=== PATIENT | male | born 2005 | race Caucasian/White ===

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

== ENCOUNTER 2024-10-27 21:41 | Inpatient (IN) | payer BC, SELFPAY ==
[2024-10-27 22:08] VITALS: BP 120/80; BP 137/76; PULSE 80; PULSE 90; RESP 16; TEMP 37; O2SAT 97; O2SAT 98; BMI 22.4
--- NOTE | 2024-10-27 22:31 | ED.PSYCH ---
HPI - Psych General Chief Complaint: Psychiatric Symptoms Stated Complaint: PSYCH Time Seen by Provider: 10/27/24 21:53 Source: patient and EMS Mode of arrival: EMS Limitations: no limitations History of Present Illness ED Provider: [facility] HPI Narrative: 19 yo male with PMH of bipolar reports no meds x 1 month c/o SI and wanting to hurt himself. He did use a knife to cause abrasions to his R forearm no other injury or ingestion. He reports sig life stressors as the cause. He has SI but no plan. He is calm and talkative. MD complaint: suicidal ideation and feels depressed Onset (ago): week(s) Duration: getting worse History of same: Yes Relieving factors: none Exacerbating factors: other Context: not taking psychiatric medications and significant life stressor Associated psychiatric symptoms: depression and suicidal ideation Associated symptoms: denies other symptoms Treatments prior to arrival: none If self harm: admits thoughts of self harm and self-inflicted trauma Related Data Home Medications ?Medication ?Instructions ?Recorded ?Confirmed No Known Home Meds 10/27/24 10/27/24 Allergies Allergy/AdvReac Type Severity Reaction Status Date / Time No Known Allergies Allergy Verified 10/27/24 22:17 Review of Systems Review of Systems: Constitutional : No Fever, No Chills ENT/Mouth : No Ear Pain, No Nasal Congestion, No sore throat Eyes: No Eye Pain, No Swelling, No Redness Cardiovascular : No Chest Pain, No SOB Respiratory : No Cough, No Sputum, No Dyspnea Gastrointestinal : No Nausea, No Vomiting, No Diarrhea, No Hematochezia, No Melena Genitourinary : No Dysuria, No Urinary Frequency, No Hematuria Musculoskeletal : No Myalgias Skin : No Skin Lesions, No rash Neuro : No Weakness, No Numbness, No Paresthesias, No Dizziness, No Headache Psych : positive Anxiety, positive Depression, positive SI no HI Heme/Lymph: No Lymphadenopathy Endocrine : No Polyuria, No Polydipsia All other systems reviewed and are negative [facility] Past Medical History Attestation statement: The following information was validated with the patient. Source: old records reviewed Medical History Bipolar disorder Social History Social History Alcohol intake: never Patient Tobacco Use Status: Current someday Tobacco user Substance Use Type: Marijuana Advance Directives: No Advance Directives Information Provided: No Do you have a plan to hurt others: No Plan Physical Exam Vital Signs: Vital Signs: Last Vital Signs Temp 98.6 F 10/27/24 22:08 Pulse 80 10/27/24 22:08 Resp 16 10/27/24 22:08 BP 120/80 10/27/24 22:08 Pulse Ox 98 10/27/24 22:08 O2 Del Method Room Air 10/27/24 22:08 BMI result Body Mass Index 22.4 Appearance: Alert. Oriented X3. No acute distress. Eyes: Pupils equal, round and reactive to light. ENT: Pharynx normal. Neck: Normal inspection. Neck supple. CVS: Normal heart rate and rhythm. Pulses normal. Respiratory: No respiratory distress. Breath sounds normal. Abdomen: Soft and nontender. Skin: Skin warm and dry. Normal skin color. Normal skin turgor. Extremities: No lower extremity edema. No calf ttp Neuro: Oriented X 3. No motor deficit. No sensory deficit. Cn2-12 intact Course Course Course Narrative: inpatient bed search per CARE team Medications Administered Discontinued Medications Generic Name Dose Route Start Last Admin Trade Name Freq PRN Reason Stop Dose Admin Diphenhydramine HCl 50 mg 10/28/24 00:51 10/28/24 01:11 Diphenhydramine Hcl 25 Mg Capsule PO 10/28/24 00:52 50 mg ONCE ONE Administration Medical Decision Making Medical Decision Making [facility] Narrative: 19 yo male with PMH of bipolar here with SI and depression here with c/o not taking his medications and have sig life stressors at this time labs, CARE team consult Differential Diagnosis Differential Diagnoses: The differential diagnosis associated with the presentation includes depression, SI Admission/Observation Consideration of admission/observation: Escalation of care including admission/observation considered physician observation started at 1035pm pending CARE team Consult Healthcare Provider Management of the patient was discussed with: Behavioral Health Provider Lab Data [facility] Lab Attestation statement: I reviewed the patient's lab results. 10/27/24 22:24 10/27/24 22:24 Labs: Lab Results 10/27/24 Range/Units 22:24 WBC 9.6 (4.8-10.8) X10*3/uL RBC 5.02 (4.60-5.80) X10*6/uL Hgb 14.9 (14.0-18.0) g/dl Hct 44.4 (42.0-52.0) % MCV 88.4 (80.0-98.0) fL MCH 29.7 (27.0-33.0) pg MCHC 33.6 (31.0-36.0) g/dl RDW 13.5 (11.0-16.0) % Plt Count 348 D (160-400) X10*3/uL MPV 8.2 L (9.4-12.4) fL Immature Gran % (Auto) 0.7 H (0.0-0.4) % Neut % (Auto) 67.3 (45-73) % Lymph % (Auto) 22.7 (20-40) % [place] % (Auto) 7.1 (2-11) % Eos % (Auto) 1.7 (0-4) % Baso % (Auto) 0.5 (0-2) % Lymph # (Auto) 2.2 (1.2-4.9) X10*3/uL [place] # (Auto) 0.7 (0.1-1.2) X10*3/uL Eos # (Auto) 0.2 (0.0-0.4) X10*3/uL Baso # (Auto) 0.1 (0.0-0.2) X10*3/uL Abs Immat Gran (auto) 0.07 H (0.00-0.03) X10*3/uL Absolute Neuts (auto) 6.5 (2.0-8.3) x10*3/uL Absolute Nucleated RBC 0.000 (0.0-0.012) X10*3/uL Nucleated RBC % (auto) 0.0 (0.0-0.2) /100WBC Sodium 140 (135-145) mmol/L Potassium 4.0 (3.3-5.1) mmol/L Chloride 106 (96-108) mmol/L Carbon Dioxide 28 (22-29) mmol/L Anion Gap 10 L (12-20) BUN 16 (9-16) mg/dL Creatinine 1.06 (0.5-1.4) mg/dL Estim Creat Clear Calc 121.2 Estimated GFR > 60 Random Glucose 87 (60-115) mg/dL Calcium 9.4 (8.4-10.2) mg/dL Magnesium 2.1 (1.6-2.6) mg/dL Total Bilirubin 0.3 (0.0-1.0) mg/dL Direct Bilirubin 0.1 (0.0-0.5) mg/dL AST 21 (5-37) U/L ALT 10 (0-40) U/L Alkaline Phosphatase 73 (39-117) U/L Total Protein 7.3 (6.5-8.0) g/dL Albumin 4.4 (3.5-5.0) g/dL Urine Opiates Screen Not Detected (Not Detect) Ur Buprenorphine Scrn Not Detected (Not Detect) ng/mL Ur Oxycodone Screen Not Detected (Not Detect) ng/mL Urine Methadone Screen Not Detected (Not Detect) ng/mL Urine Fentanyl Screen Not Detected (Not Detect) Ur Barbiturates Screen Not Detected (Not Detect) Ur Phencyclidine Scrn Not Detected (Not Detect) Ur Amphetamines Screen Not Detected (Not Detect) U Benzodiazepines Scrn Not Detected (Not Detect) Urine Cocaine Screen Not Detected (Not Detect) U Marijuana (THC) Screen POSITIVE H (Not Detect) Ethyl Alcohol < 10 mg/dL Independent Historian Clinical information obtained from an independent historian. History obtained from or confirmed by: EMS Social Determinants Patient?s care significantly limited by Social Determinants of Health including: Problems related to primary support group Discharge Plan Discharge Clinical Impression: Suicidal ideation Patient Disposition: Still a Patient Prescriptions: No Action No Known Home Meds Interventions: [place]-Suicide Risk Severity Scale Last Done: 10/27/24 22:25 Print Language: Mozambican
[2024-10-27 22:32] LABS: MANUAL DIFF FLAG NO
[2024-10-27 22:35] LABS: Basophils Absolute Auto 0.1 X10*3/uL (0.0-0.2); Basophils Percent Auto 0.5 % (0-2); Eosinophils Absolute Auto 0.2 X10*3/uL (0.0-0.4); Eosinophils Percent Auto 1.7 % (0-4); Hematocrit 44.4 % (42.0-52.0); Hemoglobin 14.9 g/dl (14.0-18.0); Imm Gran Abs Auto 0.07 X10*3/uL (0.00-0.03); Imm Gran Pct Auto 0.7 % (0.0-0.4); Lymphocytes Absolute Auto 2.2 X10*3/uL (1.2-4.9); Lymphocytes Percent Auto 22.7 % (20-40); Mean Corpuscular HGB Conc 33.6 g/dl (31.0-36.0); Mean Corpuscular Hemoglobin 29.7 pg (27.0-33.0); Mean Corpuscular Volume 88.4 fL (80.0-98.0); Mean Platelet Volume 8.2 fL (9.4-12.4); Monocytes Absolute Auto 0.7 X10*3/uL (0.1-1.2); Monocytes Percent Auto 7.1 % (2-11); Neutrophils Absolute Auto 6.5 x10*3/uL (2.0-8.3); Neutrophils Percent Auto 67.3 % (45-73); Platelet Count 348 X10*3/uL (160-400); Red Blood Count 5.02 X10*6/uL (4.60-5.80); Red Cell Distribution Width 13.5 % (11.0-16.0); White Blood Count 9.6 X10*3/uL (4.8-10.8)
--- OUTSIDE RECORDS SUMMARY | 2024-10-27 22:50 | XMS_ITS ---
Author Name [facility] [[email or web address]P Organization Unknown History of Medication Use Medication Directions Dispensed Refills Start Date End Date Stat cyproheptadine 4 mg tablet TAKE ONE TABLET BY MOUTH TWICE A DAY TO STIMULATE APPETITE TAKE ONE TABLET BY MOUTH TWICE A DAY TO STIMULATE APPETITE 05/04/2022 completed fluoxetine 10 mg capsule Take one capsule by mouth daily for 7 days, increase to 2 capsuls daily until follow up Take one capsule by mouth daily for 7 days, increase to 2 capsuls daily until follow up 07/30/2022 completed dextroamphetamine-amp hetamine (ADDERALL XR) 20 MG extended release capsule Take 20 mg by mouth every morning 08/06/2023 active None recorded. (No additional sig information) 05/04/2022 completed Adderall XR 25 mg capsule,extended release TAKE ONE CAPSULE BY MOUTH ONCE DAILY IN THE MORNING TAKE ONE CAPSULE BY MOUTH ONCE DAILY IN THE MORNING 05/04/2022 completed hydroxyzine HCl 25 mg tablet Take 1-2 tablets as needed for severe anxiety, may repeat in 4 hours but not more than 2 doses per 24h period. Take 1-2 tablets as needed for severe anxiety, may repeat in 4 hours but not more than 2 doses per 24h period. 07/30/2022 completed Problems Problem Status Onset Date Problem Type Date of Resoluti on Source ADHD (attention deficit hyperactivity disorder) active 2017-12-18 ProblemAct [facility] Varicocele active 2016-11-08 ProblemAct [facility] Anxiety active 2022-07-25 ProblemAct [facility] Varicocele active 2017-12-18 ProblemAct [facility] Environmental allergies active 2017-12-18 ProblemAct [facility] Depressive disorder active 2022-07-25 ProblemAct [facility] Child attention deficit disorder active ProblemAct [facility] Wears glasses active 2016-11-08 ProblemAct [facility] Constipation active ProblemAct [facility]
--- NOTE | 2024-10-27 22:51 | PC.NURSE ---
changeover conducted by t/w very superficial lacerations #6 on r ventral surface forearm, patient had no evidence of cintraband present.
[2024-10-27 23:06] LABS: Alanine Aminotransferase 10 U/L (0-40); Albumin Level 4.4 g/dL (3.5-5.0); Alkaline Phosphatase 73 U/L (39-117); Anion Gap 10 (12-20); Aspartate Amino Transferase 21 U/L (5-37); Bilirubin Direct 0.1 mg/dL (0.0-0.5); Bilirubin Total 0.3 mg/dL (0.0-1.0); Blood Urea Nitrogen 16 mg/dL (9-16); Calcium 9.4 mg/dL (8.4-10.2); Carbon Dioxide 28 mmol/L (22-29); Chloride 106 mmol/L (96-108); Creatinine Clr Calc Pharmacy 121.2; Estimated Glomerular Filt Rate > 60; Ethanol < 10 mg/dL; Glucose Random 87 mg/dL (60-115); Magnesium 2.1 mg/dL (1.6-2.6); Sodium 140 mmol/L (135-145); Total Protein 7.3 g/dL (6.5-8.0)
[2024-10-27 23:11] LABS: Amphetamine Screen Urine Not Detected (Not Detect); Barbiturates, Urine Not Detected (Not Detect); Benzodiazepines Screen Urine Not Detected (Not Detect); Buprenorphine Scr Not Detected (Not Detect); Cannabinoid Screen Urine POSITIVE (Not Detect); Cocaine Screen Urine Not Detected (Not Detect); Fentanyl, urine Not Detected (Not Detect); Methadone Screen, Urine Not Detected (Not Detect); Opiate Screen Urine Not Detected (Not Detect); Oxycodone Screen Urine Not Detected (Not Detect); Phencyclidine Screen Urine Not Detected (Not Detect)
[2024-10-28] MEDS: diphenhydrAMINE HCL 25 MG CAPSULE 50 MG PO (01:11)
--- NOTE | 2024-10-28 03:03 | MHC.EDTECH ---
pt stated to t/w that he is unable to take out earring due to the possibility of it closing pt allowed to keep the dangling earring in and septum ring as well. rn aware.
--- NOTE | 2024-10-28 07:21 | PC.NURSE ---
Care of Pt assumed at change of shift. Pt is observed resting comfortably in bed. NAD noted at this time. Breakfast tray provided to Pt--placed at bedside.
[2024-10-28] MEDS: Nicotine Polacrilex 2 MG GUM BUCCAL ×2 (10:24→14:06)
[2024-10-28 11:22] VITALS: BP 126/78; PULSE 81; RESP 18; TEMP 36.2; O2SAT 99
[2024-10-28 11:29] LABS: Appearance Urine Cloudy; Color Urine Yellow; Glucose Urine UA Negative (Negative); Leukocyte Esterase Urine Negative (Negative); Nitrite Urine Negative (Negative); PH 5.5 (5.0-9.0); Specific Gravity - Urine 1.025 (1.005-1.025); Urine Blood Negative (Negative); Urine Ketones Negative (Negative); Urine Protein Trace mg/dL (Neg-Trace)
[2024-10-28 11:32] LABS: Bacteria Urine None Seen (None Seen); Hyaline Casts Urine 0-2 /LPF (0-2); RBC Urine 0-2 /HPF (0-2); Squamous Epithelial Cell Urine 0-2 /HPF (0-2); WBC Urine 0-5 /HPF (0-5)
--- NOTE | 2024-10-28 12:36 | MHC.CARE ---
Daniella with [facility] co-response [phone] calls to give her contact info for any social work program coordinator who has patient on their caseload. She shares that she is happy to help plan discharge/ follow up when he does discharge.
--- NOTE | 2024-10-28 15:40 | PHA.MEDREC ---
Addendum entered by Desiree Velasco RPh 10/28/24 16:16: REVIEWED BY [facility] Original Note: Pharmacy Consult ? Medication Reconciliation Pharmacy reviewed med rec done by nursing. No Known Home Meds were confirmed. Looking in claims, patient has not filled anything since 08/26 which was Olanzapine 15mg and patient got Qelbree 200mg tabs 06/25 for 90 and has not filled anything since then. I spoke with patients nurse and they stated the patient has not taken any medications in 1 month and stated the patient stopped them himself due to not liking how they were making him feel. The nurse stated the patient did say they still have some extra supply of the medications at home but has not taken them.
--- NOTE | 2024-10-28 15:43 | PC.NURSE ---
Spoke with JACQUELINE Cavanaugh for RN to RN report. Report completed and all questions answered to satisfaction. Awaiting transportation.
[2024-10-28] MEDS: Nicotine Polacrilex 2 MG GUM 4 MG BUCCAL (17:01)
[2024-10-28 17:26] VITALS: BP 134/80; PULSE 87; RESP 18; TEMP 36; O2SAT 99
[2024-10-28 17:27] VITALS: BMI 18.5
[2024-10-28] MEDS: Acetaminophen 325 MG TABLET 650 MG PO (17:50)
[2024-10-28] MEDS: hydrOXYzine HCL 25 MG TABLET PO (17:51)
[2024-10-28] MEDS: OLANZapine 5 MG TABLET PO (18:15)
--- NOTE | 2024-10-28 18:23 | PC.ADMIT ---
David arrived to the unit at 1600 from [facility] pod via wheelchair. Skin check done upon arrival superficial scratches to right forearm, rest of skin appears to be intact. He met with Jenna GALAN, signed CV. Upon approach he was calm and pleasant, when asked how he felt stated Ok, he reported endorsing anxiety and depression, denied auditory.visual hallucinations. When asked if he had any thoughts of wanting to hurt self stated No, verbalized to look for staff if thoughts occur. David reported he stopped taking his medications a month and half ago. He reported This medications suppressed my feelings, I didn't feel like myself. He reports feeling Numb. He reports he has talked to his psychiatrist I told him I'm on too many meds he doesn't listen. He reports The mental health system sucks. He acknowledge needing medications stated I just feel I'm not on the right ones. Per assessment David presented via ambulance secondary to suicidal ideation, he has six self inflicted superficial cuts on right forearm which he had made with a knife. Patient reported he had called a couple of friends and reported he was overwhelmed with stress and he was thinking of about ending his life. On arrival David reported he had stopped taking his depression, anxiety and ADHD medications because he felt Overmedicated. He also reported he has a pending assault and battery case coming up in November 2024, he that he could face long term time or probation. He is currently on 15 minute checks.
[2024-10-28] MEDS: LORazepam 1 MG TABLET 2 MG PO (19:24)
[2024-10-28] MEDS: OLANZapine ODT 10 MG TAB.RAPDIS TRANSLINGU (19:24)
[2024-10-28 20:00] VITALS: BP 117/62; PULSE 75; RESP 16; TEMP 36.4; O2SAT 98
[2024-10-28 20:32] VITALS: BP 117/62; PULSE 75; RESP 18; TEMP 36.4; O2SAT 98
[2024-10-29 08:00] VITALS: BP 122/83; PULSE 107; RESP 18; TEMP 36.3; O2SAT 97
--- NOTE | 2024-10-29 09:06 | P.HPPS_ITS ---
[facility] Date of Service: 10/29/24 Chief Complaint: Crisis Sources of Information: patient interviewed, chart reviewed and crisis/core team assessment reviewed HPI Subjective Notes: [place] Warning and Conditional Voluntary Narrative: Patient is a 19-year-old male with history of MDD, PTSD, and ADHD, who presented to ER via ambulance due to suicidal ideation secondary to increased life stressors. Per crisis report, patient called his friends and told them that he was feeling overwhelmed with stress and was thinking about ending his life. Patient has 6 self-inflicted superficial cuts on his right inner forearm which he made with a knife. Patient reports he stopped taking his psychiatric medications due to feeling overmedicated ;reports not taking his medications for the past 2 months. Patient reports daily cannabis use. Patient reports an upcoming court date in which she was charged with assault and battery is causing him increased stress. Patient reports that he attempted to end his life 3 years ago by intentional overdose of hydroxyzine. denies HI/VH/AH. He reports poor sleep. Patient has outpatient psychiatric providers. Patient has prior diagnosis of depression, anxiety and ADHD. Patient's father reports that he was hospitalized 6 months ago after telling a neighbor that he was going to kill himself. Utox positive for cannabis. During psychiatric assessment, patient presents alert and oriented x3. Patient reports feeling depressed ; patient stated, I'm feeling a lot of stress from my court date. Also from not having a car, job or money. I always have bad thoughts in my head and no motivation. I stopped taking my meds because I felt overmedicated. I either sleep too much or too little. I am open to taking meds but I do not want to be on a bunch of pills . Denies SI/HI/VH/AH. Patient reports history of superficially cutting. Patient reports he would like a referral to a new psychiatrist; he does not want a therapist because he believes that it is not beneficial. Patient stated, I smoke weed get tattoos and piercings because they help me from cutting myself. I do not want to . Past Psychiatric History: History overdose on hydroxyzine at age 16. History of superficially cutting: Psychiatrist: Dr. Chase. medication trials: prozac, zyprexa, wellbutrin. Medical Evaluation Reviewed: Yes [facility] Medical History (Reviewed 10/27/24 @ 22:33 by RIANA Espana Bipolar disorder Family History: Denies Social History: Lives with his parents. Single. No kids. High school diploma. Goes to [employer]; studying to be a [email or web address]. Substance History: Smokes marijuana daily. Reports using mushrooms once a month. Trauma History: Yes Diagnostics Vital Signs (24Hr): Vital Signs - 24 hr 10/28/24 11:22 10/28/24 17:26 10/28/24 20:00 Temperature 97.1 F 96.8 F 97.6 F Pulse Rate 81 87 75 Respiratory Rate 18 18 16 Blood Pressure 126/78 134/80 117/62 Pulse Oximetry 99 99 98 Oxygen Delivery Method Room Air Room Air Room Air 10/28/24 20:32 Temperature 97.6 F Pulse Rate 75 Respiratory Rate 18 Blood Pressure 117/62 Pulse Oximetry 98 Oxygen Delivery Method Room Air BMI result Body Mass Index 18.5 Labs 10/27/24 22:24 10/27/24 22:24 Labs: Laboratory Results - last 48 hr 10/27/24 10/28/24 10/28/24 22:24 11:17 17:46 WBC 9.6 RBC 5.02 Hgb 14.9 Hct 44.4 MCV 88.4 MCH 29.7 MCHC 33.6 RDW 13.5 Plt Count 348 D MPV 8.2 L Immature Gran % (Auto) 0.7 H Neut % (Auto) 67.3 Lymph % (Auto) 22.7 Jack % (Auto) 7.1 Eos % (Auto) 1.7 Baso % (Auto) 0.5 Lymph # (Auto) 2.2 Jack # (Auto) 0.7 Eos # (Auto) 0.2 Baso # (Auto) 0.1 Abs Immat Gran (auto) 0.07 H Absolute Neuts (auto) 6.5 Absolute Nucleated RBC 0.000 Nucleated RBC % (auto) 0.0 Hold Purple Top Sodium 140 Cancelled Potassium 4.0 Cancelled Chloride 106 Cancelled Carbon Dioxide 28 Cancelled Anion Gap 10 L Cancelled BUN 16 Cancelled Creatinine 1.06 Cancelled Estim Creat Clear Calc 121.2 Cancelled Estimated GFR > 60 Cancelled Random Glucose 87 Cancelled Calcium 9.4 Cancelled Magnesium 2.1 Total Bilirubin 0.3 Cancelled Direct Bilirubin 0.1 AST 21 Cancelled ALT 10 Cancelled Alkaline Phosphatase 73 Cancelled Total Protein 7.3 Cancelled Albumin 4.4 Cancelled Urine Color Yellow Urine Appearance Cloudy Urine pH 5.5 Ur Specific [place] 1.025 Urine Protein Trace Urine Glucose (UA) Negative Urine Ketones Negative Urine Blood Negative Urine Nitrite Negative Ur Leukocyte Esterase Negative Urine RBC 0-2 Urine WBC 0-5 Ur Squamous Epith Cells 0-2 Urine Bacteria None Seen Hyaline Casts 0-2 Urine Opiates Screen Not Detected Ur Buprenorphine Scrn Not Detected Ur Oxycodone Screen Not Detected Urine Methadone Screen Not Detected Urine Fentanyl Screen Not Detected Ur Barbiturates Screen Not Detected Ur Phencyclidine Scrn Not Detected Ur Amphetamines Screen Not Detected U Benzodiazepines Scrn Not Detected Urine Cocaine Screen Not Detected U Marijuana (THC) Screen POSITIVE H Ethyl Alcohol < 10 10/28/24 22:24 WBC RBC Hgb Hct MCV MCH MCHC RDW Plt Count MPV Immature Gran % (Auto) Neut % (Auto) Lymph % (Auto) Jack % (Auto) Eos % (Auto) Baso % (Auto) Lymph # (Auto) Jack # (Auto) Eos # (Auto) Baso # (Auto) Abs Immat Gran (auto) Absolute Neuts (auto) Absolute Nucleated RBC Nucleated RBC % (auto) Hold Purple Top SEE NOTE Sodium Potassium Chloride Carbon Dioxide Anion Gap BUN Creatinine Estim Creat Clear Calc Estimated GFR Random Glucose Calcium Magnesium Total Bilirubin Direct Bilirubin AST ALT Alkaline Phosphatase Total Protein Albumin Urine Color Urine Appearance Urine pH Ur Specific [place] Urine Protein Urine Glucose (UA) Urine Ketones Urine Blood Urine Nitrite Ur Leukocyte Esterase Urine RBC Urine WBC Ur Squamous Epith Cells Urine Bacteria Hyaline Casts Urine Opiates Screen Ur Buprenorphine Scrn Ur Oxycodone Screen Urine Methadone Screen Urine Fentanyl Screen Ur Barbiturates Screen Ur Phencyclidine Scrn Ur Amphetamines Screen U Benzodiazepines Scrn Urine Cocaine Screen U Marijuana (THC) Screen Ethyl Alcohol Meds/Allergies Meds Home Medications ?Medication ?Instructions ?Recorded ?Confirmed ?Type No Known Home Meds 10/27/24 10/27/24 History Allergies Allergies Allergy/AdvReac Type Severity Reaction Status Date / Time No Known Allergies Allergy Verified 10/27/24 22:17 Mental Status Exam Mental Status Exam Narrative: Pt is alert and oriented; behavior is cooperative, calm; dressed in casual attire mood is described as depressed ; eye contact appropriate; Speech is normal rate, volume and not pressured; thought process is organized and goal directed; Thought content is on tx; otherwise pertinent to relevant topics and without any delusional content, paranoid ideations or grandiosity; denies SI/HI/AH/VH. Assessment & Plan Assessment & Plan (1) MDD (major depressive disorder), recurrent episode: Status: Acute Code(s): F33.9 - Major depressive disorder, recurrent, unspecified (2) PTSD (post-traumatic stress disorder): Status: Acute Code(s): F43.10 - Post-traumatic stress disorder, unspecified (3) ADHD: Status: Acute Code(s): F90.9 - Attention-deficit hyperactivity disorder, unspecified type Plan Patient is a 19-year-old male with history of MDD, PTSD, and ADHD, who presented to ER via ambulance due to suicidal ideation secondary to increased life stressors. Plan: CV 15 minute safety checks Obtain collateral Encourage groups Continue: Prozac 20 mg p.o. daily Start: Clonidine 0.1 mg p.o. b.i.d. Referral to outpatient prescriber Discharge planning Patient educated on: diagnosis and medication risk/benefits Reason for continued inpatient stay Substantial Risk for: med/psych decompensation Statement Statement: I have reviewed the history and physical and performed a pertinent examination on my patient. No changes have occurred unless specified. If the History and Physical was not performed prior to admission, the Hospitalist's service will be consulted for completing the admission physical. Time Spent With Patient Time: Total time managing care of this patient today _60___ minutes.
[2024-10-29] MEDS: Nicotine Polacrilex 2 MG GUM 4 MG BUCCAL ×6 (11:22→22:58)
[2024-10-29] MEDS: OLANZapine 5 MG TABLET PO (14:27)
[2024-10-29 16:22] VITALS: BP 126/76
[2024-10-29] MEDS: FLUoxetine HCl 20 MG CAPSULE PO (16:22)
[2024-10-29] MEDS: cloNIDine HCL 0.1 MG TABLET PO ×2 (16:22→20:52)
[2024-10-29 20:10] VITALS: BP 116/64; PULSE 102; RESP 16; TEMP 36.2; O2SAT 100
[2024-10-29] MEDS: hydrOXYzine HCL 25 MG TABLET PO (20:52)
[2024-10-29] MEDS: Flu Vacc TS2024-25(6mos up)/PF 0.5 ML SYRINGE IM (21:27)
[2024-10-29] MEDS: traZODone HCL 50 MG TABLET PO (22:58)
[2024-10-30 07:30] VITALS: BP 92/49; PULSE 58; RESP 14; TEMP 36.2; O2SAT 96
--- NOTE | 2024-10-30 07:46 | P.PNPSI_ITS ---
Subjective Subjective Date of Service: 10/30/24 Reason For Visit: Crisis Subjective Notes: Conditional Voluntary Interim History: He denies SI/HI. He reports mood is better. No VH/AH. He is taking medications. No behavioral concerns. Review of Systems Review of Systems Constitutional : No Fever, No Chills ENT/Mouth : No Ear Pain, No Nasal Congestion, No sore throat Eyes: No Eye Pain, No Swelling, No Redness Cardiovascular : No Chest Pain, No SOB Respiratory : No Cough, No Sputum, No Dyspnea Gastrointestinal : No Nausea, No Vomiting, No Diarrhea, No Hematochezia, No Melena Genitourinary : No Dysuria, No Urinary Frequency, No Hematuria Musculoskeletal : No Myalgias Skin : No Skin Lesions, No rash Neuro : No Weakness, No Numbness, No Paresthesias, No Dizziness, No Headache Psych : positive Anxiety, positive Depression, positive SI no HI Heme/Lymph: No Lymphadenopathy Endocrine : No Polyuria, No Polydipsia All other systems reviewed and are negative Constitutional: Reports as per HPI Eyes: Reports as per HPI Reports as per HPI Cardiovascular: Reports as per HPI Respiratory: Reports as per HPI Gastrointestinal: Reports as per HPI Genitourinary: Reports as per HPI Musculoskeletal: Reports as per HPI Skin/Breast: Reports as per HPI Reports as per HPI Psychiatric: Reports as per HPI Endocrine: Reports as per HPI Hematologic/Lymphatic: Reports as per HPI Allergic/Immunologic: Reports as per HPI Mental Status Exam Mental Status Exam Narrative: Pt is alert and oriented; behavior is cooperative, calm; dressed in casual attire mood is described as depressed ; eye contact appropriate; Speech is normal rate, volume and not pressured; thought process is organized and goal directed; Thought content is on tx; otherwise pertinent to relevant topics and without any delusional content, paranoid ideations or grandiosity; denies SI/HI/AH/VH. Diagnostics Vital Signs (24Hr): Vital Signs - 24 hr 10/29/24 08:00 10/29/24 16:22 10/29/24 20:10 Temperature 97.3 F 97.1 F Pulse Rate 107 H 102 H Respiratory Rate 18 16 Blood Pressure 122/83 126/76 116/64 Pulse Oximetry 97 100 Oxygen Delivery Method Room Air Room Air BMI result Body Mass Index 18.5 Labs 10/27/24 22:24 10/27/24 22:24 Labs: Laboratory Results - last 48 hr 10/28/24 10/28/24 10/28/24 11:17 17:46 22:24 Hold Purple Top SEE NOTE Sodium Cancelled Potassium Cancelled Chloride Cancelled Carbon Dioxide Cancelled Anion Gap Cancelled BUN Cancelled Creatinine Cancelled Estim Creat Clear Calc Cancelled Estimated GFR Cancelled Random Glucose Cancelled Calcium Cancelled Total Bilirubin Cancelled AST Cancelled ALT Cancelled Alkaline Phosphatase Cancelled Total Protein Cancelled Albumin Cancelled Urine Color Yellow Urine Appearance Cloudy Urine pH 5.5 Ur Specific [place] 1.025 Urine Protein Trace Urine Glucose (UA) Negative Urine Ketones Negative Urine Blood Negative Urine Nitrite Negative Ur Leukocyte Esterase Negative Urine RBC 0-2 Urine WBC 0-5 Ur Squamous Epith Cells 0-2 Urine Bacteria None Seen Hyaline Casts 0-2 Medications Medications Current Medications Acetaminophen (Acetaminophen 325 Mg Tablet) 650 mg PO Q6H PRN PRN Reason: Headache/Pain Mild Scale (1-3) Last Admin: 10/28/24 17:50 Dose: 650 mg Al Hydroxide/Mg Hydroxide (Magnesium Hydrox/Alum Hydrox 30 Ml Oral.Susp) 30 ml PO Q6H PRN PRN Reason: Heartburn/Nausea Clonidine HCl (Clonidine Hcl 0.1 Mg Tablet) 0.1 mg PO BID [facility]; Protocol Last Admin: 10/29/24 20:52 Dose: 0.1 mg Fluoxetine HCl (Fluoxetine Hcl 20 Mg Capsule) 20 mg PO DAILY [facility] Last Admin: 10/29/24 16:22 Dose: 20 mg Hydroxyzine HCl (Hydroxyzine Hcl 25 Mg Tablet) 25 mg PO Q6H PRN PRN Reason: Anxiety Last Admin: 10/29/24 20:52 Dose: 25 mg Magnesium Hydroxide (Milk Of Magnesia 30 Ml Oral.Susp) 30 ml PO DAILY PRN PRN Reason: Constipation Nicotine Polacrilex (Nicotine Polacrilex 2 Mg Gum) 4 mg BUCCAL Q2H PRN PRN Reason: Nicotine Cravings Last Admin: 10/29/24 22:58 Dose: 4 mg Olanzapine (Olanzapine 5 Mg Tablet) 5 mg PO Q4H PRN PRN Reason: agitation Last Admin: 10/29/24 14:27 Dose: 5 mg Trazodone HCl (Trazodone Hcl 50 Mg Tablet) 50 mg PO BEDTIME MRX1 PRN PRN Reason: Insomnia Last Admin: 10/29/24 22:58 Dose: 50 mg Allergies Allergies Allergy/AdvReac Type Severity Reaction Status Date / Time No Known Allergies Allergy Verified 10/27/24 22:17 Assessment & Plan Assessment & Plan (1) MDD (major depressive disorder), recurrent episode: Status: Acute Code(s): F33.9 - Major depressive disorder, recurrent, unspecified (2) PTSD (post-traumatic stress disorder): Status: Acute Code(s): F43.10 - Post-traumatic stress disorder, unspecified (3) ADHD: Status: Acute Code(s): F90.9 - Attention-deficit hyperactivity disorder, unspecified type Plan Patient is a 19-year-old male with history of MDD, PTSD, and ADHD, who presented to ER via ambulance due to suicidal ideation secondary to increased life stressors. Plan: 10/30 continue tx. mucinex for congestion, will add flonase Reason for continued inpatient stay Substantial Risk for: inability to function Time Spent With Patient Time: Total time managing care of this patient today ____ minutes.
[2024-10-30] MEDS: Nicotine Polacrilex 2 MG GUM 4 MG BUCCAL ×7 (07:57→22:16)
[2024-10-30 08:52] VITALS: BP 115/70
[2024-10-30] MEDS: FLUoxetine HCl 20 MG CAPSULE PO (08:52)
[2024-10-30] MEDS: cloNIDine HCL 0.1 MG TABLET PO ×2 (08:52→22:24)
[2024-10-30 19:33] VITALS: BP 115/63; PULSE 79; RESP 18; TEMP 36.4; O2SAT 98
[2024-10-30 22:24] VITALS: BP 118/63
[2024-10-30] MEDS: hydrOXYzine HCL 25 MG TABLET PO (22:24)
[2024-10-30] MEDS: traZODone HCL 50 MG TABLET PO (22:24)
[2024-10-31 08:24] VITALS: BP 110/63
[2024-10-31] MEDS: FLUoxetine HCl 20 MG CAPSULE PO (08:24)
[2024-10-31] MEDS: cloNIDine HCL 0.1 MG TABLET PO ×2 (08:24→22:33)
[2024-10-31 08:25] VITALS: BP 110/63; PULSE 94; RESP 16; TEMP 36.5; O2SAT 99
[2024-10-31] MEDS: Nicotine Polacrilex 2 MG GUM 4 MG BUCCAL ×6 (08:47→23:22)
--- NOTE | 2024-10-31 10:09 | HO.PSYCHPN ---
Subjective Subjective Date of Service: 10/31/24 Reason For Visit: Crisis Subjective Notes: Conditional Voluntary Interim History: Pt slept most of the night. He reports feeling like a zombie. He explains feels no emotion but he actually seems with wide range of emotions. He is also seen socializing and interacting appropriate with peers, laughing. No SI/HI. He also reports vivid dreams with trazodone, will dc and add remeron instead. No behavioral concerns. Review of Systems Review of Systems Constitutional : No Fever, No Chills ENT/Mouth : No Ear Pain, No Nasal Congestion, No sore throat Eyes: No Eye Pain, No Swelling, No Redness Cardiovascular : No Chest Pain, No SOB Respiratory : No Cough, No Sputum, No Dyspnea Gastrointestinal : No Nausea, No Vomiting, No Diarrhea, No Hematochezia, No Melena Genitourinary : No Dysuria, No Urinary Frequency, No Hematuria Musculoskeletal : No Myalgias Skin : No Skin Lesions, No rash Neuro : No Weakness, No Numbness, No Paresthesias, No Dizziness, No Headache Psych : positive Anxiety, positive Depression, positive SI no HI Heme/Lymph: No Lymphadenopathy Endocrine : No Polyuria, No Polydipsia All other systems reviewed and are negative Constitutional: Reports as per HPI Eyes: Reports as per HPI Reports as per HPI Cardiovascular: Reports as per HPI Respiratory: Reports as per HPI Gastrointestinal: Reports as per HPI Genitourinary: Reports as per HPI Musculoskeletal: Reports as per HPI Skin/Breast: Reports as per HPI Reports as per HPI Psychiatric: Reports as per HPI Endocrine: Reports as per HPI Hematologic/Lymphatic: Reports as per HPI Allergic/Immunologic: Reports as per HPI Mental Status Exam Mental Status Exam Narrative: Pt is alert and oriented; behavior is cooperative, calm; dressed in casual attire mood is described as depressed ; eye contact appropriate; Speech is normal rate, volume and not pressured; thought process is organized and goal directed; Thought content is on tx; otherwise pertinent to relevant topics and without any delusional content, paranoid ideations or grandiosity; denies SI/HI/AH/VH. Diagnostics Vital Signs (24Hr): Vital Signs - 24 hr 10/30/24 19:33 10/30/24 22:24 10/31/24 08:24 Temperature 97.5 F Pulse Rate 79 Respiratory Rate 18 Blood Pressure 115/63 118/63 110/63 Pulse Oximetry 98 Oxygen Delivery Method Room Air 10/31/24 08:25 Temperature 97.7 F Pulse Rate 94 Respiratory Rate 16 Blood Pressure 110/63 Pulse Oximetry 99 Oxygen Delivery Method Room Air BMI result Body Mass Index 18.5 Labs 10/27/24 22:24 10/27/24 22:24 Medications Medications Current Medications Acetaminophen (Acetaminophen 325 Mg Tablet) 650 mg PO Q6H PRN PRN Reason: Headache/Pain Mild Scale (1-3) Last Admin: 10/28/24 17:50 Dose: 650 mg Al Hydroxide/Mg Hydroxide (Magnesium Hydrox/Alum Hydrox 30 Ml Oral.Susp) 30 ml PO Q6H PRN PRN Reason: Heartburn/Nausea Clonidine HCl (Clonidine Hcl 0.1 Mg Tablet) 0.1 mg PO BID [facility]; Protocol Last Admin: 10/31/24 08:24 Dose: 0.1 mg Fluoxetine HCl (Fluoxetine Hcl 20 Mg Capsule) 20 mg PO DAILY [facility] Last Admin: 10/31/24 08:24 Dose: 20 mg Guaifenesin/Dextromethorphan (Guaifenesin Dm 600/30 1 Tab Tab.Er.12h) 1 tab PO BID PRN PRN Reason: Cough/congestion Hydroxyzine HCl (Hydroxyzine Hcl 25 Mg Tablet) 25 mg PO Q6H PRN PRN Reason: Anxiety Last Admin: 10/30/24 22:24 Dose: 25 mg Magnesium Hydroxide (Milk Of Magnesia 30 Ml Oral.Susp) 30 ml PO DAILY PRN PRN Reason: Constipation Nicotine Polacrilex (Nicotine Polacrilex 2 Mg Gum) 4 mg BUCCAL Q2H PRN PRN Reason: Nicotine Cravings Last Admin: 10/31/24 08:47 Dose: 4 mg Olanzapine (Olanzapine 5 Mg Tablet) 5 mg PO Q4H PRN PRN Reason: agitation Last Admin: 10/29/24 14:27 Dose: 5 mg Trazodone HCl (Trazodone Hcl 50 Mg Tablet) 50 mg PO BEDTIME MRX1 PRN PRN Reason: Insomnia Last Admin: 10/30/24 22:24 Dose: 50 mg Allergies Allergies Allergy/AdvReac Type Severity Reaction Status Date / Time No Known Allergies Allergy Verified 10/27/24 22:17 Assessment & Plan Assessment & Plan (1) MDD (major depressive disorder), recurrent episode: Status: Acute Code(s): F33.9 - Major depressive disorder, recurrent, unspecified (2) PTSD (post-traumatic stress disorder): Status: Acute Code(s): F43.10 - Post-traumatic stress disorder, unspecified (3) ADHD: Status: Acute Code(s): F90.9 - Attention-deficit hyperactivity disorder, unspecified type Plan Patient is a 19-year-old male with history of MDD, PTSD, and ADHD, who presented to ER via ambulance due to suicidal ideation secondary to increased life stressors. Plan: 10/30 continue tx. mucinex for congestion, will add flonase 10/31 d/c trazodone due to vivid dreams. will add remeron instead. Reason for continued inpatient stay Substantial Risk for: inability to function Time Spent With Patient Time: Total time managing care of this patient today ____ minutes.
[2024-10-31 20:00] VITALS: BP 107/64; PULSE 80; RESP 16; TEMP 36.7; O2SAT 98
[2024-10-31 22:18] VITALS: BP 105/64; PULSE 73
[2024-10-31] MEDS: hydrOXYzine HCL 25 MG TABLET PO (22:33)
[2024-10-31] MEDS: Mirtazapine 15 MG TABLET PO (22:34)
[2024-11-01 07:40] VITALS: BP 111/70; PULSE 65; RESP 16; TEMP 36.3; O2SAT 99
[2024-11-01] MEDS: Nicotine Polacrilex 2 MG GUM 4 MG BUCCAL ×4 (08:36→23:01)
[2024-11-01] MEDS: FLUoxetine HCl 20 MG CAPSULE PO (08:36)
[2024-11-01] MEDS: cloNIDine HCL 0.1 MG TABLET PO ×2 (08:36→22:50)
--- NOTE | 2024-11-01 11:02 | HO.PSYCHPN ---
Subjective Subjective Date of Service: 11/01/24 Reason For Visit: Crisis Subjective Notes: 3 Day Interim History: Active on unit, social with peers. attending groups. Patient reports feeling good and ready to go home tomorrow ; denies SI/HI/VH/AH. Discussed possibly attending PHP, however, pt states he is focused on obtaining a job when discharged. Patient reports he plans on following up with his outpatient providers. Spoke to patient's mother, Brittany, with patients consent; reviewed medications;states she dispenses patients medications. Medication Compliance: Yes Side effects from medications: No Attending Groups: Yes Review of Systems Constitutional: Reports as per HPI Eyes: Reports as per HPI Reports as per HPI Cardiovascular: Reports as per HPI Respiratory: Reports as per HPI Gastrointestinal: Reports as per HPI Genitourinary: Reports as per HPI Musculoskeletal: Reports as per HPI Skin/Breast: Reports as per HPI Reports as per HPI Psychiatric: Reports as per HPI Endocrine: Reports as per HPI Hematologic/Lymphatic: Reports as per HPI Allergic/Immunologic: Reports as per HPI Mental Status Exam Mental Status Exam Narrative: Pt is alert and oriented; behavior is cooperative and calm; dressed in casual attire; mood is described as good ; eye contact appropriate; Speech is normal rate, volume and not pressured; thought process is organized and goal directed; Thought content is on tx; denies SI/HI/VH/AH. Diagnostics Vital Signs (24Hr): Vital Signs - 24 hr 10/31/24 20:00 10/31/24 22:18 11/01/24 07:40 Temperature 98.1 F 97.3 F Pulse Rate 80 73 65 Respiratory Rate 16 16 Blood Pressure 107/64 105/64 111/70 Pulse Oximetry 98 99 Oxygen Delivery Method Room Air Room Air BMI result Body Mass Index 18.5 Labs 10/27/24 22:24 10/27/24 22:24 Medications Medications Current Medications Acetaminophen (Acetaminophen 325 Mg Tablet) 650 mg PO Q6H PRN PRN Reason: Headache/Pain Mild Scale (1-3) Last Admin: 10/28/24 17:50 Dose: 650 mg Al Hydroxide/Mg Hydroxide (Magnesium Hydrox/Alum Hydrox 30 Ml Oral.Susp) 30 ml PO Q6H PRN PRN Reason: Heartburn/Nausea Clonidine HCl (Clonidine Hcl 0.1 Mg Tablet) 0.1 mg PO BID [facility]; Protocol Last Admin: 11/01/24 08:36 Dose: 0.1 mg Fluoxetine HCl (Fluoxetine Hcl 20 Mg Capsule) 20 mg PO DAILY [facility] Last Admin: 11/01/24 08:36 Dose: 20 mg Guaifenesin/Dextromethorphan (Guaifenesin Dm 600/30 1 Tab Tab.Er.12h) 1 tab PO BID PRN PRN Reason: Cough/congestion Hydroxyzine HCl (Hydroxyzine Hcl 25 Mg Tablet) 25 mg PO Q6H PRN PRN Reason: Anxiety Last Admin: 10/31/24 22:33 Dose: 25 mg Magnesium Hydroxide (Milk Of Magnesia 30 Ml Oral.Susp) 30 ml PO DAILY PRN PRN Reason: Constipation Mirtazapine (Mirtazapine 15 Mg Tablet) 15 mg PO BEDTIME [facility] Last Admin: 10/31/24 22:34 Dose: 15 mg Nicotine Polacrilex (Nicotine Polacrilex 2 Mg Gum) 4 mg BUCCAL Q2H PRN PRN Reason: Nicotine Cravings Last Admin: 11/01/24 08:36 Dose: 4 mg Olanzapine (Olanzapine 5 Mg Tablet) 5 mg PO Q4H PRN PRN Reason: agitation Last Admin: 10/29/24 14:27 Dose: 5 mg Allergies Allergies Allergy/AdvReac Type Severity Reaction Status Date / Time No Known Allergies Allergy Verified 10/27/24 22:17 Assessment & Plan Assessment & Plan (1) MDD (major depressive disorder), recurrent episode: Status: Acute Code(s): F33.9 - Major depressive disorder, recurrent, unspecified (2) PTSD (post-traumatic stress disorder): Status: Acute Code(s): F43.10 - Post-traumatic stress disorder, unspecified (3) ADHD: Status: Acute Code(s): F90.9 - Attention-deficit hyperactivity disorder, unspecified type Plan Patient is a 19-year-old male with history of MDD, PTSD, and ADHD, who presented to ER via ambulance due to suicidal ideation secondary to increased life stressors. Plan: 10/30 continue tx. mucinex for congestion, will add flonase 10/31 d/c trazodone due to vivid dreams. will add remeron instead. 11/01: Active on unit, social with peers. attending groups. Patient reports feeling good and ready to go home tomorrow ; denies SI/HI/VH/AH. Discussed possibly attending PHP, however, pt states he is focused on obtaining a job when discharged. Patient reports he plans on following up with his outpatient providers. Spoke to patient's mother, Brittany, with patients consent; reviewed medications;states she dispenses patients medications. Patient educated on: diagnosis and medication risk/benefits Reason for continued inpatient stay Substantial Risk for: stable for discharge Time Spent With Patient Time: Total time managing care of this patient today _20___ minutes.
[2024-11-01] MEDS: Acetaminophen 325 MG TABLET 650 MG PO (11:35)
[2024-11-01] MEDS: OLANZapine 5 MG TABLET PO (19:17)
[2024-11-01 20:00] VITALS: BP 106/61; PULSE 79; RESP 16; TEMP 36.9; O2SAT 97
[2024-11-01 22:37] VITALS: BP 108/60; PULSE 74
[2024-11-01] MEDS: Mirtazapine 15 MG TABLET PO (22:50)
[2024-11-02 07:40] VITALS: BP 115/67; PULSE 56; RESP 18; TEMP 35.9; O2SAT 100
[2024-11-02] MEDS: cloNIDine HCL 0.1 MG TABLET PO (08:39)
[2024-11-02] MEDS: FLUoxetine HCl 20 MG CAPSULE PO (08:39)
--- NOTE | 2024-11-02 09:01 | P.DS_ITS ---
DS: Providers Provider Date of Service: 11/02/24 Date of admission: 10/28/24 13:45 Date of discharge: 11/02/24 Primary care physician: Unknown Physician Admitting clinician: Elidia West Attending physician on admission: Maycol Lantigua Attending physician on discharge: Maycol Lantigua Discharging clinician: Elidia West DS: Diagnosis Discharge Diagnosis (1) MDD (major depressive disorder), recurrent episode: Status: Acute (2) PTSD (post-traumatic stress disorder): Status: Acute (3) ADHD: Status: Acute DS: Medications Discharge Medications Home Medications: Previous Rx's ?Medication ?Instructions ?Recorded clonidine HCl 0.1 mg tablet 0.1 mg PO BID 30 days #60 tabs 11/01/24 fluoxetine 20 mg capsule 20 mg PO DAILY 30 days #30 caps 11/01/24 hydroxyzine HCl 25 mg tablet 25 mg PO TID PRN Anxiety 30 days 11/01/24 #90 tabs mirtazapine 15 mg tablet 15 mg PO BEDTIME 30 days #30 tabs 11/01/24 Mental Status Exam Mental Status Exam Narrative: Pt is alert and oriented; behavior is cooperative and calm; dressed in casual attire; mood is described as good ; eye contact appropriate; Speech is normal rate, volume and not pressured; thought process is organized and goal directed; Thought content is on tx; denies SI/HI/VH/AH. Data Data Completed and Pending Completed studies during hospitalization [Text1]: 10/27/24 10/28/24 10/28/24 22:24 11:17 17:46 WBC 9.6 RBC 5.02 Hgb 14.9 Hct 44.4 MCV 88.4 MCH 29.7 MCHC 33.6 RDW 13.5 Plt Count 348 D MPV 8.2 L Immature Gran % (Auto) 0.7 H Neut % (Auto) 67.3 Lymph % (Auto) 22.7 [place] % (Auto) 7.1 Eos % (Auto) 1.7 Baso % (Auto) 0.5 Lymph # (Auto) 2.2 [place] # (Auto) 0.7 Eos # (Auto) 0.2 Baso # (Auto) 0.1 Abs Immat Gran (auto) 0.07 H Absolute Neuts (auto) 6.5 Absolute Nucleated RBC 0.000 Nucleated RBC % (auto) 0.0 Hold Purple Top Sodium 140 Cancelled Potassium 4.0 Cancelled Chloride 106 Cancelled Carbon Dioxide 28 Cancelled Anion Gap 10 L Cancelled BUN 16 Cancelled Creatinine 1.06 Cancelled Estim Creat Clear Calc 121.2 Cancelled Estimated GFR > 60 Cancelled Random Glucose 87 Cancelled Calcium 9.4 Cancelled Magnesium 2.1 Total Bilirubin 0.3 Cancelled Direct Bilirubin 0.1 AST 21 Cancelled ALT 10 Cancelled Alkaline Phosphatase 73 Cancelled Total Protein 7.3 Cancelled Albumin 4.4 Cancelled Urine Color Yellow Urine Appearance Cloudy Urine pH 5.5 Ur Specific [place] 1.025 Urine Protein Trace Urine Glucose (UA) Negative Urine Ketones Negative Urine Blood Negative Urine Nitrite Negative Ur Leukocyte Esterase Negative Urine RBC 0-2 Urine WBC 0-5 Ur Squamous Epith Cells 0-2 Urine Bacteria None Seen Hyaline Casts 0-2 Urine Opiates Screen Not Detected Ur Buprenorphine Scrn Not Detected Ur Oxycodone Screen Not Detected Urine Methadone Screen Not Detected Urine Fentanyl Screen Not Detected Ur Barbiturates Screen Not Detected Ur Phencyclidine Scrn Not Detected Ur Amphetamines Screen Not Detected U Benzodiazepines Scrn Not Detected Urine Cocaine Screen Not Detected U Marijuana (THC) Screen POSITIVE H Ethyl Alcohol < 10 10/28/24 22:24 WBC RBC Hgb Hct MCV MCH MCHC RDW Plt Count MPV Immature Gran % (Auto) Neut % (Auto) Lymph % (Auto) [place] % (Auto) Eos % (Auto) Baso % (Auto) Lymph # (Auto) [place] # (Auto) Eos # (Auto) Baso # (Auto) Abs Immat Gran (auto) Absolute Neuts (auto) Absolute Nucleated RBC Nucleated RBC % (auto) Hold Purple Top SEE NOTE Sodium Potassium Chloride Carbon Dioxide Anion Gap BUN Creatinine Estim Creat Clear Calc Estimated GFR Random Glucose Calcium Magnesium Total Bilirubin Direct Bilirubin AST ALT Alkaline Phosphatase Total Protein Albumin Urine Color Urine Appearance Urine pH Ur Specific [place] Urine Protein Urine Glucose (UA) Urine Ketones Urine Blood Urine Nitrite Ur Leukocyte Esterase Urine RBC Urine WBC Ur Squamous Epith Cells Urine Bacteria Hyaline Casts Urine Opiates Screen Ur Buprenorphine Scrn Ur Oxycodone Screen Urine Methadone Screen Urine Fentanyl Screen Ur Barbiturates Screen Ur Phencyclidine Scrn Ur Amphetamines Screen U Benzodiazepines Scrn Urine Cocaine Screen U Marijuana (THC) Screen Ethyl Alcohol DS: Summary Hospital Course Hospital Course: Patient is a 19-year-old male with history of MDD, PTSD, and ADHD, who presented to ER via ambulance due to suicidal ideation secondary to increased life stressors. Per crisis report, patient called his friends and told them that he was feeling overwhelmed with stress and was thinking about ending his life. Patient has 6 self-inflicted superficial cuts on his right inner forearm which he made with a knife. Patient reports he stopped taking his psychiatric medications due to feeling overmedicated ;reports not taking his medications for the past 2 months. Patient reports daily cannabis use. Patient reports an upcoming court date in which she was charged with assault and battery is causing him increased stress. Patient reports that he attempted to end his life 3 years ago by intentional overdose of hydroxyzine. denies HI/VH/AH. He reports poor sleep. Patient has outpatient psychiatric providers. Patient has prior diagnosis of depression, anxiety and ADHD. Patient's father reports that he was hospitalized 6 months ago after telling a neighbor that he was going to kill himself. Utox positive for cannabis. During psychiatric assessment, patient presents alert and oriented x3. Patient reports feeling depressed ; patient stated, I'm feeling a lot of stress from my court date. Also from not having a car, job or money. I always have bad thoughts in my head and no motivation. I stopped taking my meds because I felt overmedicated. I either sleep too much or too little. I am open to taking meds but I do not want to be on a bunch of pills . Denies SI/HI/VH/AH. Patient reports history of superficially cutting. Patient reports he would like a referral to a new psychiatrist; he does not want a therapist because he believes that it is not beneficial. Patient stated, I smoke weed get tattoos and piercings because they help me from cutting myself. I do not want to . Plan: continue tx. mucinex for congestion, will add flonase d/c trazodone due to vivid dreams. will add remeron instead. Active on unit, social with peers. attending groups. Patient reports feeling good and ready to go home tomorrow ; denies SI/HI/VH/AH. Discussed possibly attending PHP, however, pt states he is focused on obtaining a job when discharged. Patient reports he plans on following up with his outpatient providers. Spoke to patient's mother, Brittany, with patients consent; reviewed medications;states she dispenses patients medications. Time spent discussing smoking cessation with patient: 3 to 10 minutes Status at Discharge Cognitive/behavioral status at discharge: Patient has insight and demonstrates good judgment in terms of wanting to pursue treatment. Patient has a safety plan that includes presenting to the closest ER or calling 911 if feeling unsafe. Functional status at discharge: independent ambulation Overall status at discharge: patient is back to baseline Time Spent with Patient Time attestation: Total time managing care of this patient today _20___ minutes. Time spent: Less than 30 minutes Discharge Plan Discharge Anticipated Discharge Date/Time: 11/02/24 11:00 Patient Disposition: Home, Self-Care Discharge Diagnosis: MDD, PTSD, ADHD Referrals: [facility] [Provider Group] - 1 Week (11-01-24 [facility] was added to patients chart. Please call [phone] to schedule your follow up appt.) Discharge Medications: New mirtazapine 15 mg Tablet 15 mg PO BEDTIME 30 Days Qty: 30 0RF fluoxetine 20 mg Capsule 20 mg PO DAILY 30 Days Qty: 30 0RF clonidine HCl 0.1 mg Tablet 0.1 mg PO BID 30 Days Qty: 60 0RF Protocol: Hold for SBP< HOLD for SBP < : 90 hydroxyzine HCl 25 mg Tablet 25 mg PO TID PRN (Reason: Anxiety) 30 Days Qty: 90 0RF Discharge Orders: Discharge Order (Routine); Ordered 11/02/24 Ordered By: Elidia West Diet: Regular diet Activity on Discharge: As tolerated Stand Alone Forms: Patient Portal Discharge page, Community Support Print Language: Ukrainian Care Plan Goals: Maintain mood and safe behaviors Take medications as prescribed Practice coping skills Continue with outpatient providers and reach out to them as needed Health Concerns: Mood stability and behaviors Plan of Treatment: Follow up with your PCP, psychiatric provider and other outpatient providers regarding above concerns Take medications as prescribed Assessment: Patient has insight and demonstrates good judgment in terms of wanting to pursue treatment. Patient has a safety plan that includes presenting to the closest ER or calling 911 if feeling unsafe. Discharge Date/Time: 11/02/24 11:00
[2024-11-02] MEDS: Nicotine Polacrilex 2 MG GUM 4 MG BUCCAL (09:05)
== END 2024-11-02 11:00 | disposition home or self-care (01) | DRG 751 ==
LOC: HO.ED 10-28 10:19 → HO.PADLT16 10-28 13:49
PROVIDERS: Emergency Medicine Emergency Medical Services; Admitting Provider Registered Nurse; Emergency Provider Emergency Medicine; Responsible Provider Registered Nurse; Visit Provider Psychiatry & Neurology Psychiatry
DX: F33.9 Major depressive disorder, recurrent, unspecified (principal); R45.851 Suicidal ideations; F90.9 Attention-deficit hyperactivity disorder, unspecified type; F17.210 Nicotine dependence, cigarettes, uncomplicated; Z71.6 Tobacco abuse counseling; Z23 Encounter for immunization; Z79.899 Other long term (current) drug therapy
CPT/HCPCS: 36415; 80048; 80076; 80307; 81001; 83735; 85025; 90656; 99285

== ENCOUNTER → 2024-10-28 13:45 | Outpatient (BNV) | payer BC, SELFPAY | PROVIDERS: Admitting Provider Registered Nurse; Emergency Provider Emergency Medicine; Responsible Provider Registered Nurse; Visit Provider Social Worker | DX: F33.9 Major depressive disorder, recurrent, unspecified (principal); F43.10 Post-traumatic stress disorder, unspecified; F90.9 Attention-deficit hyperactivity disorder, unspecified type | CPT/HCPCS: 90792; 99231; 99232; 99238 ==